=== PATIENT | female | born 1980 | race Caucasian/White ===

== ENCOUNTER 2018-12-14 19:22 | Emergency (ER) | payer OTHER ==
[2018-12-14] MEDS ORDERED: Famotidine 20 MG Tab PO STA (22:19)
--- NOTE | 2018-12-14 22:33 | EDM.PDOC ---
ED HPI GENERAL MEDICAL PROBLEM - General Chief Complaint: Abdominal Pain Stated Complaint: COUGHED UP BLOOD Time Seen by Provider: 12/14/18 21:50 Source of Information: Reports: Patient History Limitations: Reports: No Limitations - History of Present Illness INITIAL COMMENTS - FREE TEXT/NARRATIVE: Mrs. Keane is a very pleasant 38-year-old woman with a past medical history significant for GERD, who states that she has been experiencing epigastric pain that radiates up into her chest and causes her to cough every night for about the past 6 months. She had been taking Zantac on an as-needed basis, but stopped more than a month ago after hearing news about its cancer causing potential. She states that last night her symptoms were even worse than usual. She states that she began coughing to the point that she nearly vomited. She states that her cough was productive of a yellowish awful-tasting sputum. She then coughed more and noticed that the sputum appeared to be tinged red, with flecks of blood. In addition, the patient states that she sometimes feels her heart pounding at night, and she occasionally feels skipped beats. Overall, the patient states that she just feels tired. She denies having any recent fever, chills, dyspnea, nausea, constipation, diarrhea, or urinary symptoms. The patient states that she does not snore. The patient states that she has never undergone a gastroenterologic evaluation. The patient does not have a PCP or Fleet Manager. She has not received an influenza vaccine this season. Upper Abdomen Pain Score (Numeric/FACES): 3 - Related Data Allergies Allergy/AdvReac Type Severity Reaction Status Date / Time No Known Allergies Allergy Verified 12/14/18 19:55 Home Meds: Home Meds . 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 ED EXAM, GENERAL - Physical Exam Exam: See Below Exam Limited By: No Limitations General Appearance: Alert, WD/WN, No Apparent Distress Eye Exam: Bilateral Eye: EOMI, Normal Inspection Ears: Normal External Exam, Hearing Grossly Normal Nose: Normal Inspection, No Blood Throat/Mouth: Normal Inspection, Normal Lips, Normal Teeth, Normal Gums, Normal Voice, No Airway Compromise, Other (Mild cobblestoning posterior oropharynx) Head: Atraumatic, Normocephalic Neck: Normal Inspection, Supple, Non-Tender, Full Range of Motion. No: Lymphadenopathy (L), Lymphadenopathy (R) Respiratory/Chest: No Respiratory Distress, Lungs Clear, Normal Breath Sounds, No Accessory Muscle Use. No: Decreased Breath Sounds, Crackles, Rhonchi, Wheezing, Stridor, Prolonged Expiration Cardiovascular: Normal Peripheral Pulses, Regular Rate, Rhythm, No Gallop, No JVD, No Murmur, No Rub Peripheral Pulses: 4+: Radial (L), Radial (R) GI/Abdominal: Normal Bowel Sounds, Soft, No Organomegaly, No Distention, No Abnormal Bruit, No Mass, Tender (Very slight to the epigastrium only. Completely nontender elsewhere.) (Female) Exam: Deferred Rectal (Female) Exam: Deferred Back Exam: Normal Inspection, Full Range of Motion, NT Extremities: Normal Inspection, Normal Range of Motion, No Pedal Edema, Normal Capillary Refill Neurological: Alert, Oriented, Normal Cognition, No Motor/Sensory Deficits Psychiatric: Normal Affect Skin Exam: Warm, Dry, Intact, Normal Color, No Rash EKG INTERPRETATION EKG Date: 12/14/18 Time: 22:25 Rhythm: NSR Rate (Beats/Min): 67 [place]: Normal P-Wave: Present QRS: Normal ST-T: Normal (Prominent Q-waves in III, but none elsewhere) QT: Normal Comparison: NA - No Prior EKG Course - Vital Signs Last Recorded V/S: Last Vital Signs Temp 36.1 C 12/14/18 19:50 Pulse 71 12/14/18 19:50 Resp 16 12/14/18 19:50 BP 151/94 H 12/14/18 19:50 Pulse Ox 100 12/14/18 19:50 - Orders/Labs/Meds Meds: Medications Discontinued Medications Generic Name Dose Route Start Last Admin Trade Name Alhaji PRN Reason Stop Dose Admin Famotidine 40 mg 12/14/18 22:19 12/14/18 22:23 Pepcid PO 12/14/18 22:20 40 mg ONETIME STA Administration - Re-Assessments/Exams Free Text/Narrative Re-Assessment/Exam: 12/14/18 22:21 By history, the patient is almost certainly suffering from GERD, made worse since she stopped taking Zantac about a month ago. The patient will be started on famotidine, and I will recommend that she take one tablet twice a day, going forward. If that fails to control her symptoms, she will need a PPI, but if that occurs, she should undergo an EGD. The blood that the patient saw while coughing most likely came from some friable tissue in her posterior oropharynx. I strongly doubt a pulmonary hemorrhage, since her lungs are entirely clear to auscultation bilaterally, and her oxygen saturation is 100%. For reassurance, we will check a chest x-ray. With respect to the palpitations that the patient sometimes feels at night, we will check a baseline ECG, then set her up with a 48 hour Holter monitor. I will have the patient follow-up with Dr. Du, to not only establish a primary care, but also to address her gynecologic needs, arrange for an EGD if that becomes necessary, and for follow-up for her Holter monitor. 12/14/18 22:53 2-view chest radiograph appears to be grossly normal. The cardiac silhouette is within normal limits. No pulmonary vascular congestion. No pleural effusions. No focal infiltrate. No pneumothorax. Increased thoracic kyphosis incidentally noted. Formal read per the Radiologist pending. 12/14/18 23:00 Chest x-ray and ECG results discussed with the patient. As above, there is no suggestion of a pulmonary hemorrhage on her chest x-ray, and her ECG showed no dysrhythmias. The Holter monitor has been applied, and she was given 40 mg of famotidine. I will discharge her home with the recommendation that she start taking one tablet of [id number] famotidine twice a day, and have her follow-up with Dr. Du after she has turned her Holter monitor in. Departure - Departure Time of Disposition: 23:01 Disposition: Home, Self-Care 01 Condition: Good Clinical Impression: GERD (gastroesophageal reflux disease), Palpitations - Discharge Information *PRESCRIPTION DRUG MONITORING PROGRAM REVIEWED*: Not Applicable *COPY OF PRESCRIPTION DRUG MONITORING REPORT IN PATIENT NIRMAL: Not Applicable Referrals: Miranda Du MD [Physician] - Forms: ED Department Discharge Additional Instructions: You were seen in the emergency room for nightly upper midline abdominal pain that radiates up into your chest, sometimes leading to a cough, along with palpitations at night. Workup in the ER included a chest x-ray and an ECG, both of which were unremarkable. There is no sign that you have a pulmonary hemorrhage, and no abnormal rhythms were found on the ECG. Based on your history and physical examination, you are most likely suffering from GERD. You have been started on the antacid medicine famotidine (Pepcid). Famotidine is available [id number], and generics are just as good as the brand name. Take one tablet of famotidine twice a day. You have been fitted with a 48 hour Holter monitor. Turn it in after 48 hours, as instructed. Follow-up with Dr. Miranda Du in the clinic after you turn the Holter monitor in, to establish a primary care, and to get interpretation of the Holter monitor. If the Pepcid fails to control your GERD symptoms, you will need to be switched to a proton pump inhibitor, however, under those circumstances, we recommend that you follow-up with Dr. Du, to not only be prescribed a proton pump inhibitor, but to also arrange for an EGD. If any other problems, please do not hesitate to return to the ER.
--- NOTE | 2018-12-16 10:15 | CR ---
Chest: Two views of the chest were obtained. Comparison: No prior chest x-ray is available. Heart size and mediastinum are normal. Lungs are clear. Bony structures show diffuse disc space narrowing within the spine with minimal endplate osteophytes. Impression: 1. Degenerative spine changes. 2. Nothing acute is seen on two-view chest x-ray. Diagnostic code #2
== END 2018-12-14 23:17 | disposition home or self-care (01) ==
LOC: JD.ED 19:22
DX: K21.9 Gastro-esophageal reflux disease without esophagitis (principal); R00.2 Palpitations; E66.9 Obesity, unspecified; Z68.42 Body mass index [BMI] 45.0-49.9, adult
CPT/HCPCS: 71046; 93005; 93225; 93226; 99284; A9270; 93010; 99283